=== PATIENT | male | born 1990 | race American Indian/Alaskan Native ===

== ENCOUNTER 2020-05-08 02:36 | Emergency (ER) | payer BC | END 2020-05-08 02:40 | disposition left against medical advice (07) | LOC: ED 02:36 | DX: I10 Essential (primary) hypertension (principal); Z53.21 Procedure and treatment not carried out due to patient leaving prior to being seen by health care provider ==

== ENCOUNTER 2020-05-27 15:56 | Emergency (ER) | payer BC ==
[2020-05-27 16:16] VITALS: BP 139/93
--- NOTE | 2020-05-27 18:05 | Event Note ---
ED Screening Note Date of service: 05/27/20 Time: 18:02 ED Screening Note: 29-year-old -[place] male with a history of anxiety presents to the emergency room for lips and face feeling numb and tingling. Patient states his been taking his Atarax 3 times a day but today he states he just feels weird like there is something more wrong. Patient denies any nausea no vomiting no chest pain but does admit to intermittent racing of his heart. He is followed by [facility] primary care in [place]. This initial assessment/diagnostic orders/clinical plan/treatment(s) is/are subject to change based on patients health status, clinical progression and re- assessment by fellow clinical providers in the ED. Further treatment and workup at subsequent clinical providers discretion. Patient/guardian urged not to elope from the ED as their condition may be serious if not clinically assessed and managed. Initial orders include:
[2020-05-27 18:55] LABS: Hematocrit 49.5 % (35.5-45.6); Hemoglobin 17.1 gm/dl (11.8-15.2); Mean Corpuscular HGB Conc 35 % (32-34); Mean Corpuscular Volume 87 fl (84-94); Platelet Count 184 K/mm3 (140-440); Red Blood Count 5.71 M/mm3 (3.65-5.03); Red Cell Distribution Width 13.4 % (13.2-15.2)
[2020-05-27 19:17] LABS: Blood Urea Nitrogen TNR mg/dL (9-20)
[2020-05-27 19:18] LABS: BUN/Creatinine Ratio TNR; Calcium TNR mg/dL (8.4-10.2); Hemolysis Index TNR
--- NOTE | 2020-05-27 21:45 | Emergency Department Report ---
ED Anxiety HPI - General Chief Complaint: Anxiety Stated Complaint: LIGHT HEADED/FACE TINGLING Source: patient Mode of arrival: Ambulatory - History of Present Illness Initial Comments: Patient is a 29-year-old -Lith[place]ian male with a history of asthma and anxiety who presents to the ED with acute onset persistent diffuse facial tingling and numbness, shortness of breath, elevated heart rate, tingling and numbness sensation in the upper and lower extremities bilaterally for the last 2 days. Patient states that he believes the symptoms have been due to his panic attacks and anxiety since he is currently going through a lot of stressors at home given the fact that he has a baby on the way in the next 1 week. Patient states that he has been taking Vistaril 50 mg tablets as needed but admits that he has not taken the same medication in the last 2 days when he started having the symptoms. Patient denies chest pain, dizziness, syncope, fever, chills, nausea, vomiting, cough, nasal and sinus congestion, change in vision, abdominal pain or diarrhea, headache or palpitations. MD Complaint: anxiety, shortness of breath, other (facial and lip tingling; upper and lower extremity tingling sensations) -: Sudden, days(s) (2) Symptoms: dyspnea, extremity numbness, perioral numbness/tinglin, sense of impending doom Place: home Previous History of Same: Yes (chronic anxiety) Severity: moderate Quality: intermittant Provoking factors: emotional stress, work/job stress, other ( of first baby expected in 2 days) Improves With: medication Worsens With: thinking about event Associated symptoms: chest pain, shortness of breath, malaise. denies: palpitations, diaphoresis, denies other symptoms, confusion, cough, fever/chills, headaches, anorexia, nausea/vomiting, rash, seizure, syncope, weakness, other - Related Data Allergies/Adverse Reactions: Allergies Allergy/AdvReac Type Severity Reaction Status Date / Time prednisone Allergy Unknown Verified 05/27/20 16:15 ED Review of Systems ROS: Stated complaint: LIGHT HEADED/FACE TINGLING Other details as noted in HPI Constitutional: malaise. denies: chills, fever Eyes: denies: eye pain, eye discharge, vision change ENT: other (Perioral and facial tingling sensation). denies: ear pain, throat pain Respiratory: shortness of breath. denies: cough, wheezing Cardiovascular: other (Chest tightness). denies: chest pain, palpitations Endocrine: no symptoms reported Gastrointestinal: denies: abdominal pain, nausea, vomiting, diarrhea Genitourinary: denies: urgency, dysuria Musculoskeletal: other (Bilateral upper and lower extremity tingling and numbness sensation). denies: back pain, joint swelling, arthralgia Skin: denies: rash, lesions Neurological: denies: headache, weakness, paresthesias Psychiatric: anxiety. denies: depression, auditory hallucinations, visual hallucinations, homicidal thoughts, suicidal thoughts Hematological/Lymphatic: denies: easy bleeding, easy bruising ED Past Medical Hx - Past Medical History Previous Medical History?: No Hx Psychiatric Treatment: Yes (anxiety) Hx Asthma: Yes - Surgical History Past Surgical History?: No ED Physical Exam - General Limitations: No Limitations General appearance: alert, in no apparent distress, anxious - Head Head exam: Present: atraumatic, normocephalic, normal inspection - Eye Eye exam: Present: normal appearance, PERRL, EOMI Pupils: Present: normal accommodation - ENT ENT exam: Present: normal exam, normal orophraynx, mucous membranes moist, TM's normal bilaterally, normal external ear exam - Neck Neck exam: Present: normal inspection, full ROM - Respiratory Respiratory exam: Present: normal lung sounds bilaterally. Absent: respiratory distress, wheezes, rales, rhonchi, chest wall tenderness, accessory muscle use, decreased breath sounds - Cardiovascular Cardiovascular Exam: Present: normal rhythm, tachycardia, normal heart sounds. Absent: systolic murmur, diastolic murmur, rubs, gallop - GI/Abdominal GI/Abdominal exam: Present: soft, normal bowel sounds. Absent: tenderness, guarding, hyperactive bowel sounds, hypoactive bowel sounds, organomegaly - Extremities Exam Extremities exam: Present: normal inspection, full ROM, normal capillary refill - Back Exam Back exam: Present: normal inspection, full ROM. Absent: tenderness, CVA tenderness (R), CVA tenderness (L), muscle spasm, paraspinal tenderness - Neurological Exam Neurological exam: Present: alert, oriented X3, CN II-XII intact, normal gait, reflexes normal - Psychiatric Psychiatric exam: Present: normal affect, anxious, flat affect. Absent: agitated, manic, homicidal ideation, suicidal ideation - Skin Skin exam: Present: warm, dry, intact, normal color. Absent: rash ED Course Vital Signs 05/27/20 16:15 Temperature 98.3 F Pulse Rate 104 H Respiratory 16 Rate Blood Pressure 139/93 O2 Sat by Pulse 100 Oximetry ED Medical Decision Making - Lab Data Result diagrams: 05/27/20 18:28 05/27/20 18:28 - Medical Decision Making This is a 29-year-old -Lithuanian male with a history of asthma and anxiety who presents to the ED with acute onset persistent diffuse facial tingling and numbness, shortness of breath, elevated heart rate, tingling and numbness sensa tion in the upper and lower extremities bilaterally for the last 2 days. Patient states that he believes the symptoms have been due to his panic attacks and anxiety since he is currently going through a lot of stressors at home given the fact that he has a baby on the way in the next 1 week. Patient states that he has been taking Vistaril 50 mg tablets as needed but admits that he has not taken the same medication in the last 2 days when he started having the symptoms. In the ED, patient is alert and oriented x3 and is not in any distress but appears anxious. Patient stated that he has a prescription of Wellbutrin which was written for him by his primary care physician but he has not been able to pick the medication up in the last 1 week because he was scared of taking the medicine. Patient was counseled to take the medication daily to help improve on his anxiety and depression, and to only use Vistaril as needed when he has exacerbations of his anxiety. Patient was therefore discharged home and advised to follow-up with his primary care physician in 5 to 7 days for reevaluation or return to the ED immediately if symptoms get worse. - Differential Diagnosis Anxiety; panic attacks; asthma; bronchitis; Critical care attestation.: If time is entered above; I have spent that time in minutes in the direct care of this critically ill patient, excluding procedure time. ED Disposition Clinical Impression: Anxiety as acute reaction to exceptional stress, Panic attack due to exception al stress Disposition: DC-01 TO HOME OR SELFCARE Is pt being admited?: No Does the pt Need Aspirin: No Condition: Stable Instructions: Panic Attack, [id number], Generalized Anxiety Disorder, Adult Additional Instructions: Take the medications that you are ready have and refill the recently prescribed Wellbutrin and take it daily as advised. Follow-up with your primary care physician in 5 to 7 days for reevaluation. Return to the ED immediately if symptoms get worse. Referrals: [facility] [Provider Group] - 3-5 Days Forms: Work/School Release Form(ED) Time of Disposition: 21:44 Print Language: GAMBIAN
== END 2020-05-27 21:52 | disposition home or self-care (01) ==
LOC: ED 15:56
DX: F43.0 Acute stress reaction (principal); F41.9 Anxiety disorder, unspecified; J45.909 Unspecified asthma, uncomplicated; Z88.6 Allergy status to analgesic agent
CPT/HCPCS: 36415; 80048; 85027; 99283

== ENCOUNTER 2020-10-15 23:26 | Emergency (ER) | payer BC ==
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
[2020-10-16] MEDS ORDERED: HYDROcodone/ACETAMINOPHEN 10-325MG TAB PO ONE (04:06)
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
[2020-10-16 05:11] VITALS: BP 139/84
== END 2020-10-16 05:02 | disposition home or self-care (01) ==
LOC: ED 23:26
DX: S00.93XA Contusion of unspecified part of head, initial encounter (principal); S16.1XXA Strain of muscle, fascia and tendon at neck level, initial encounter; F41.9 Anxiety disorder, unspecified; J45.909 Unspecified asthma, uncomplicated; Z79.899 Other long term (current) drug therapy; Z88.1 Allergy status to other antibiotic agents; Z88.8 Allergy status to other drugs, medicaments and biological substances; Y04.2XXA Assault by strike against or bumped into by another person, initial encounter; Y93.89 Activity, other specified; Y92.89 Other specified places as the place of occurrence of the external cause; Y99.8 Other external cause status
CPT/HCPCS: 70450; 70486; 71046; 72125